=== PATIENT | female | born 1985 | race Hispanic/Latino ===

== ENCOUNTER 2022-04-29 14:12 | Emergency (ER) | payer OTHER ==
[~2022-04-29] VITALS: Ht 160 cm; Wt 149.7 kg
[2022-04-29] MEDS ORDERED: 0.9%NACL 1000ML 1,000 ML IV SCH (14:30)
[2022-04-29 14:51] LABS: BASOPHILS % (AUTO) 0.2 % (0.0-5.0); HEMATOCRIT 43.3 % (36-48); LYMPHOCYTES % (AUTO) 26.8 % (21.0-51.0); MEAN CORPUSCULAR HEMOGLOBIN 31.4 pg (27.0-33.0); MEAN CORPUSCULAR HGB CONC 34.6 g/dL (32.0-36.0); MEAN CORPUSCULAR VOLUME 90.8 fL (79-99); MONOCYTES % (AUTO) 8.3 % (3.0-13.0); NEUTROPHILS % (AUTO) 64.5 % (40.0-77.0); PLATELET COUNT (AUTO) 162 K/uL (130-400); RED BLOOD CELL COUNT(AUTO) 4.77 MIL/uL (4.00-5.50); RED CELL DISTRIBUTION WIDTH 11.8 % (11.0-15.5); WHITE BLOOD COUNT (AUTO) 4.2 K/uL (4.8-10.8)
[2022-04-29] MEDS ORDERED: IBUPROFEN 600 MG TABLET PO ONE (15:00)
[2022-04-29] MEDS ORDERED: ONDANSETRON 4MG INJ IVP ONE (15:00)
[2022-04-29] MEDS ORDERED: FAMOTIDINE 20MG VIAL IV ONE (15:00)
[2022-04-29] MEDS ORDERED: ACETAMINOPHEN 500 MG TABLET PO ONE (15:00)
[2022-04-29 15:29] LABS: CREATININE 0.9 mg/dL (0.5-1.5); POTASSIUM 3.8 mmol/L (3.5-5.1)
[2022-04-29 15:35] LABS: ALBUMIN 3.3 g/dL (3.5-5.0); TOTAL PROTEIN, SERUM 7.5 g/dL (6.0-8.3)
[2022-04-29 15:36] LABS: APPEARANCE,URINE SL CLOUDY (CLEAR); BILIRUBIN,URINE SMALL (NEGATIVE); COLOR,URINE YELLOW (YELLOW); GLUCOSE, URINE (UA) NEGATIVE (NEGATIVE); KETONES,URINE 5 mg/dL (NEGATIVE); LEUKOCYTE ESTERASE ,URINE NEGATIVE (NEGATIVE); NITRATE,URINE NEGATIVE (NEGATIVE); OCCULT BLOOD,URINE SMALL (NEGATIVE); PROTEIN,URINE 100 mg/dL (NEGATIVE)
[2022-04-29 15:45] LABS: HCG,QUALITATIVE URINE NEGATIVE (NEGATIVE)
[2022-04-29 15:47] LABS: BACTERIA,URINE Few /HPF (None Seen); TRICHOMONAS,URINE Moderate /LPF (None Seen)
[2022-04-29 15:48] LABS: MUCUS,URINE Few LPF (None Seen); SQUAMOUS EPITHELIAL CELL,UR Moderate /HPF (0-2)
[2022-04-29 16:18] VITALS: BP 103/55
[2022-04-29] MEDS ORDERED: AMOX875T2 PO (16:18)
[2022-04-29] MEDS ORDERED: IBUP-2070 PO (16:18)
[2022-04-29] MEDS ORDERED: METR-172 PO (16:18)
[2022-04-29] MEDS ORDERED: ACET-66 PO (16:18)
[2022-04-29] MEDS ORDERED: AMOXICILLIN 500 MG CAPSULE PO ONE (16:30)
[2022-04-29] MEDS ORDERED: DOXYCYCLINE HYCLATE 100 MG TABLET PO SCH (16:30)
[2022-04-29] MEDS ORDERED: METRONIDAZOLE 500 MG TABLET PO ONE (16:30)
== END 2022-04-29 16:43 | disposition home or self-care (01) ==
LOC: EDH 14:12
DX: B34.9 Viral infection, unspecified (principal); A59.01 Trichomonal vulvovaginitis; Z20.822 Contact with and (suspected) exposure to COVID-19
CPT/HCPCS: 99284; 96374; 71045; 96361; 87635; 96375; 80053; 85025; 87040 ×2; 87804 ×2; 83605; 81001; 81025; 36415; C9803; J3490; J7030 ×2; J2405